=== PATIENT | male | born 1940 | race Caucasian/White ===

== ENCOUNTER 2018-09-25 08:20 | Emergency (ER) | payer MEDICARE, OTHER ==
[~2018-09-25] VITALS: Ht 170.2 cm; Wt 88.6 kg
[~2018-09-25 08:20] MED LIST: AMLO5TAB PO; ASPI-611 PO; ATOR40TA71 PO; CITA40TA22 PO; FINA5TAB11 PO; LOSA50TA3 PO; OMEP20TA5 PO; SUCR1ORA PO; metformin PO
[2018-09-25] MEDS ORDERED: aspirin 81mg tab.chew PO ONE (08:45)
[2018-09-25 09:30] LABS: BASOPHILS # (AUTO) 0.1 X10'3 (0-0.2); BASOPHILS % (AUTO) 1.2 % (0-1); EOSINOPHILS # (AUTO) 0.4 X10'3 (0-0.9); EOSINOPHILS % (AUTO) 7.4 % (0-6); HEMATOCRIT 37.8 % (42.0-52.0); HEMOGLOBIN 12.6 g/dl (14.0-17.9); LYMPHOCYTES # (AUTO) 1.3 X10'3 (1.1-4.8); LYMPHOCYTES % (AUTO) 27.9 % (21-51); MEAN CORPUSCULAR HEMOGLOBIN 30.1 PG (27.0-31.0); MEAN CORPUSCULAR HGB CONC 33.4 % (33.0-36.5); MEAN CORPUSCULAR VOLUME 90.2 FL (78-98); MONOCYTES # (AUTO) 0.4 X10'3 (0-0.9); MONOCYTES % (AUTO) 7.4 % (2-12); NEUTROPHILS # (AUTO) 2.5 X10'3 (1.8-7.7); NEUTROPHILS % (AUTO) 56.1 % (42-75); PLATELET COUNT 183 X10'3 (140-440); RED BLOOD COUNT 4.19 X10'6 (4.70-6.10); RED CELL DISTRIBUTION WIDTH 14.3 % (11.5-14.5); WHITE BLOOD COUNT 4.7 X10'3 (4.5-11.0)
[2018-09-25] MEDS ORDERED: morphine 4 MG/ML inj SYRINge IV ONE (09:45)
[2018-09-25] MEDS ORDERED: ondansetron/PF 4mg/2ml inj IV ONE (09:45)
[2018-09-25 09:46] LABS: ALANINE AMINOTRANSFERASE 29 U/L (12-78); ALBUMIN 3.7 G/DL (3.4-5.0); ALBUMIN/GLOBULIN RATIO 1.1 (1.1-1.5); ALKALINE PHOSPHATASE 69 IU/L (46-116); ANION GAP 12 (8-16); ASPARTATE AMINO TRANSFERASE 21 U/L (10-37); BILIRUBIN,TOTAL 0.3 MG/DL (0.1-1.0); BLOOD UREA NITROGEN 38 MG/DL (7-18); BUN/CREATININE RATIO 23.2 (5.4-32.0); CALCIUM 8.7 MG/DL (8.5-10.1); CHLORIDE 100 MMOL/L (99-107); CREATININE 1.64 MG/DL (0.60-1.10); GLUCOSE 291 MG/DL (70-104); POTASSIUM 4.7 MMOL/L (3.5-5.1); SODIUM 139 MMOL/L (135-145); eGFR 41 ML/MIN
[2018-09-25 09:55] LABS: MAGNESIUM 2.1 MG/DL (1.5-2.4)
[2018-09-25] MEDS ORDERED: ACET-3067 PO (11:02)
[2018-09-25 11:11] VITALS: BP 108/50
== END 2018-09-25 11:25 | disposition home or self-care (01) ==
LOC: ER 08:20
DX: M54.6 Pain in thoracic spine (principal); E11.9 Type 2 diabetes mellitus without complications; Z79.82 Long term (current) use of aspirin; Z79.84 Long term (current) use of oral hypoglycemic drugs; Z79.899 Other long term (current) drug therapy
CPT/HCPCS: 36415; 71045; 80053; 83735; 83880; 84484; 85025; 96374; 99284; J2270